=== PATIENT | female | born 1960 | race American Indian/Alaskan Native ===

== ENCOUNTER 2016-07-10 10:05 | Inpatient (IN) | payer OTHER ==
[2016-07-10] MEDS ORDERED: PEPCID IV ONE ×2 (10:19→10:25)
[2016-07-10] MEDS ORDERED: MORPHINE IV PRN (10:25)
[2016-07-10] MEDS ORDERED: BABY ASPIRIN PO ONE (10:28)
--- NOTE | 2016-07-10 10:28 | Emergency Department Report ---
HPI - General Chief Complaint: Allergic Reaction Time Seen by Provider: 07/10/16 10:15 - HPI HPI: The patient is a 56-year-old female who presents for evaluation of allergic reaction. The patient reports continuous constant, severe upper lip swelling since 4 AM, associated with mild pain, tightness in quality, exacerbated with movement of the mid face. The patient also shares that she has experienced pruritic rash to the extremities and body since yesterday evening. The patient denies fever cough, syncope, hemoptysis, dyspnea, neck stiffness, dysphagia, stridor, drooling, difficulty tolerating secretions, dysphonia, joint swelling. ED Past Medical Hx - Past Medical History Hx Hypertension: Yes Hx Arthritis: Yes - Surgical History Additional Surgical History: left knee surgery (2001) - Social History Smoking Status: Light Tobacco Smoker Substance Use Type: None - Medications Home Medications: Home Medications Medication Instructions Recorded Confirmed Last Taken Type Acetaminophen/Codeine [Tylenol #3] 1 tab PO Q6H PRN #20 tab 06/15/13 Unknown Rx Lisinopril [Zestril TAB] 40 mg PO QDAY #45 tablet 06/15/13 Unknown Rx Naproxen Sodium (Nf) [Anaprox DS] 550 mg PO BID PRN #14 tablet 06/15/13 Unknown Rx HYDROcodone/APAP 5-325 [[place] 1 each PO Q6HR PRN #14 tablet 04/20/14 Unknown Rx 5/325] Ibuprofen [Motrin 800 MG tab] 800 mg PO Q8H PRN #20 tablet 04/20/14 Unknown Rx amLODIPine [Norvasc] 10 mg PO DAILY #90 tab 04/20/14 Unknown Rx ED Review of Systems ROS: Stated complaint: ALLERGIC REACTION Other details as noted in HPI Constitutional: denies: fever; reports facial/lip swelling ENT: denies: throat or neck pain Respiratory: denies: cough, shortness of breath Cardiovascular: denies: chest pain Endocrine: denies unexplained weight loss or gain Gastrointestinal: denies: abdominal pain, nausea Genitourinary: denies: dysuria Musculoskeletal: denies: leg swelling Skin: denies: rash Neurological: denies: headache Hematological/Lymphatic: denies: easy bleeding or easy bruising Psych: denies sadness or hopelessness Physical Exam - Physical Exam Vital Signs: Vital Signs 07/10/16 10:13 Pulse Rate 84 Respiratory 18 Rate Blood Pressure 143/89 O2 Sat by Pulse 99 Oximetry Physical Exam: General: well-nourished, well-developed, no acute distress Head: Normocephalic, atraumatic, severe upper lip swelling present, tongue swelling present as well, no uvula or oropharyngeal swelling, no stridor, no pooling of secretions in the posterior oropharynx Eyes: normal sclera ENT: Mucous membranes are pink and moist Neck: trachea midline, neck supple, No neck stiffness, no cervical adenopathy Respiratory: Breath sounds equal bilaterally, no wheezing, rales, or rhonchi Cardio: S1 and S2 present, no murmurs, rubs, gallops, capillary refill is brisk Abdomen: Normoactive bowel sounds, soft abdomen, no rigidity, no guarding or rebound tenderness Chest WALL/Back: No tenderness to palpation of the chest wall, no CVA tenderness with percussion Musc: No pitting edema Skin: No rash Neuro: no facial drooping, normal speech Psych: Normal affect ED Course Vital Signs 07/10/16 10:13 Pulse Rate 84 Respiratory 18 Rate Blood Pressure 143/89 O2 Sat by Pulse 99 Oximetry ED Medical Decision Making - Lab Data Result diagrams: 07/10/16 11:53 07/10/16 11:53 - Medical Decision Making The patient was seen and examined by myself. The patient was given IM epinephrine and IV Benadryl in route via EMS. The patient is placed on a nurse gynecology and continuous pulse ox. On initial evaluation, the patient was found to be in no distress. Evaluation orders were placed. The patient is given IV Solu-Medrol and IV Pepcid. As the patient's angioedema is severe, she will be admitted for close monitoring of her airway. The on-call hospitalist service was contacted. They agreed to admit the patient for further treatment and close monitoring. The ED admit order was placed. The patient was admitted in guarded condition. Critical care attestation.: If time is entered above; I have spent that time in minutes in the direct care of this critically ill patient, excluding procedure time. ED Disposition Clinical Impression: Angioedema Qualifiers: Encounter type: initial encounter Qualified Code(s): T78.3XXA - Angioneurotic edema, initial encounter Anaphylaxis Qualifiers: Encounter type: initial encounter Qualified Code(s): T78.2XXA - Anaphylactic shock, unspecified, initial encounter Disposition: DISCHARGED TO HOME OR SELFCARE Is pt being admited?: Yes Does the pt Need Aspirin: Yes Condition: Fair Time of Disposition: 10:27
--- NOTE | 2016-07-10 10:40 | Admit Criteria Form ---
Admission Criteria Documentation: HEAD AND NECK DISEASE [facility] Clinical Indications for Admission to Inpatient Care ( Place 'X' for any and all applicable criteria): Hospital admission is needed for appropriate care of the patient because of ANY ONE of the following (1)(2): [ ]I. Severe sinusitis as indicated by ANY ONE of the following (6)(13)(21) [ ]a) Suspected VINEGAR MAKER infection [ ]b) Bacteremia [ ]c) Hemodynamic instability [ ]d) Outpatient and observation care antibiotic treatment have failed or are not considered appropriate [ ]e) Surgical drainage needed that cannot be performed on an outpatient basis or observation. setting [ ]f) Suspected orbital involvement [ ]II. Acute glaucoma unresponsive to emergency treatment that requires medication or other treatment beyond the scope of observation care (1) [ ]III. Severe eye infection or inflammation (eg, uveitis) which is unresponsive to emergency treatment and requires medication or other treatment beyond the scope of observation care (1)(2)(3)(4) [ ]IV. Severe epistaxis requiring posterior packing (5)(6) [ ]V. Acute bacterial labyrinthitis(6)(7) [ ]. Viral labyrinthitis with symptoms uncontrollable on an outpatient or observation care basis (6)(7) [ ]VII. Severe necrotizing external otitis unresponsive to outpatient and observation care treatment(6) [ ]VIII. Otitis media requiring treatment beyond the scope of outpatient and observation care, as indicated by presence or persistence of ANY ONE of the following(6)(8)(9): [ ]a) Hemodynamic instability [ ]b) Mastoiditis [ ]c) Suspected VINEGAR MAKER infection [ ]d) Bacteremia [ ]e) Surgical drainage needed that cannot be performed as an outpatient. or in an observation setting. [ ]IX. Epiglottitis or supraglottitis(6)(11)(12)(13)(14) [ ]X. Stridor or laryngospasm (unresponsive to emergency management) (6)(11)( 12)(13)(14) [ ]XI. Acute pharyngitis or tonsillitis and ANY ONE of the following (14)(15)( 16): [ ]a) Hemodynamic instability remaining after emergency or observation level care (as appropriate) [ ]b) Surgical drainage needed that cannot be performed in outpatient or observation setting [ ]c) Mediastinitis [ ]d) Thrombophlebitis of internal jugular vein (Lemierre syndrome) [ ]XII. Sialoadenitis and ANY ONE of the following (17) (18) [ ]a) Hemodynamic instability remaining after emergency or observation level care(as appropriate) [ ]b) Surgical drainage needed that cannot be performed in outpatient or observation setting [ ]XIII. Airway blockage or inability to swallow (6)(12)(19)(20) [ ]XIV.Complicated infection indicated by ANY ONE of the following(6)(13)(21)(22 ): [ ]a) Abscess or swelling causing airway difficulty(12) [ ]b) Bacteremia [ ]c) Hemodynamic instability [ ]d) Suspected VINEGAR MAKER infection [ ]e) Outpatient and observation care antibiotic treatment have failed or are not considered appropriate [ ]f) Surgical drainage needed that cannot be performed on an outpatient basis or observation setting [ ]g) Other management need that cannot be performed in outpatient or observation setting: [ ]XV. Severe trauma requiring inpatient medical treatment of eye, head, pharynx, or airway (1)(23)([phone]) [ ]XVI. Ischemic optic neuropathy(11) [ X]XVII.Head or Neck Disease condition and ANY ONE of the following: [X ]a) Symptom or finding for which emergency and observation care have failed or are not considered appropriate (Also use General Criteria: Observation Care as appropriate) [ ]b) Presence of ANY ONE of the following: [ ]i) A General Admission Criteria [ ]ii) A Pediatric General Admission Criteria The [facility] content created by [facility] has been revised. The portions of the content which have been revised are identified through the use of italic text or in bold, and [facility] has neither reviewed nor approved the modified material. All other unmodified content is copyright [facility]. Please see references footnoted in the original [facility] edition 2016 Admission Criteria Met: Yes
--- NOTE | 2016-07-10 11:13 | History and Physical Report ---
Medications and Allergies Allergies Allergy/AdvReac Type Severity Reaction Status Date / Time No Known Allergies Allergy Verified 04/20/14 11:51 Home Medications Medication Instructions Recorded Confirmed Last Taken Type Acetaminophen/Codeine [Tylenol #3] 1 tab PO Q6H PRN #20 tab 06/15/13 Unknown Rx Lisinopril [Zestril TAB] 40 mg PO QDAY #45 tablet 06/15/13 Unknown Rx Naproxen Sodium (Nf) [Anaprox DS] 550 mg PO BID PRN #14 tablet 06/15/13 Unknown Rx HYDROcodone/APAP 5-325 [[place] 1 each PO Q6HR PRN #14 tablet 04/20/14 Unknown Rx 5/325] Ibuprofen [Motrin 800 MG tab] 800 mg PO Q8H PRN #20 tablet 04/20/14 Unknown Rx amLODIPine [Norvasc] 10 mg PO DAILY #90 tab 04/20/14 Unknown Rx Active Meds: Active Medications Morphine Sulfate (Morphine) 4 mg IV Q3H PRN PRN Reason: Pain , Severe (7-10) Last Admin: 07/10/16 10:37 Dose: 4 mg Exam - Constitutional Vitals: Temp Pulse Resp BP Pulse Ox 74 18 158/77 99 07/10/16 10:37 07/10/16 10:41 07/10/16 10:37 07/10/16 10:41
[2016-07-10 11:57] LABS: Basophils % (Auto) 0.1 % (0.0-1.8); Eosinophils % (Auto) 0.9 % (0.0-4.3); Hemoglobin 12.1 gm/dl (10.1-14.3); Mean Corpuscular HGB Conc 33 % (30-34); Mean Corpuscular Hemoglobin 31 pg (28-32); Mean Corpuscular Volume 93 fl (79-97); Platelet Count 612 K/mm3 (140-440); Red Blood Count 3.96 M/mm3 (3.65-5.03); Red Cell Distribution Width 13.6 % (13.2-15.2); White Blood Count 11.4 K/mm3 (4.5-11.0)
[2016-07-10] MEDS ORDERED: TYLENOL PO PRN (12:08)
[2016-07-10] MEDS ORDERED: DULCOLAX PR PRN (12:08)
[2016-07-10] MEDS ORDERED: ZOFRAN IV PRN (12:08)
[2016-07-10 12:14] LABS: Alanine Aminotransferase 8 units/L (7-56); Albumin/Globulin Ratio 1.4 %; Alkaline Phosphatase 125 units/L (35-129); Bilirubin,Total 0.2 mg/dL (0.1-1.2); Blood Urea Nitrogen 7 mg/dL (7-17); Carbon Dioxide 27 mmol/L (22-30); Chloride 103.9 mmol/L (98-107); Glucose 94 mg/dL (65-100); Magnesium 1.9 mg/dL (1.7-2.3); Potassium 4.5 mmol/L (3.6-5.0); Sodium 144 mmol/L (137-145); Total Protein 6.9 g/dL (6.3-8.2)
[2016-07-10 12:15] LABS: Anion Gap 18 mmol/L
[2016-07-10] MEDS ORDERED: NORCO 5/325 PO PRN (12:16)
[2016-07-10] MEDS ORDERED: BENADRYL PO ONE (14:20)
[2016-07-10] MEDS: BENADRYL IV SCH ×2 (14:46→19:22)
[2016-07-10] MEDS: NORVASC PO SCH (14:46)
[2016-07-10] MEDS: MORPHINE IV PRN ×2 (14:47→19:21)
[2016-07-10] MEDS: HEPARIN SUB-Q SCH ×3 (14:56→22:48)
[2016-07-10] MEDS: PEPCID IV SCH (20:54)
[2016-07-11] MEDS: BENADRYL IV SCH ×3 (00:10→13:24)
[2016-07-11] MEDS: PEPCID IV SCH ×2 (05:48→10:06)
[2016-07-11] MEDS: MORPHINE IV PRN ×2 (06:10→10:05)
[2016-07-11] MEDS: HEPARIN SUB-Q SCH ×2 (06:17→13:22)
[2016-07-11] MEDS: NORVASC PO SCH (10:06)
--- NOTE | 2016-07-11 11:24 | Discharge Summary ---
Providers - Providers Date of Admission: 07/10/16 12:09 Date of discharge: 07/11/16 Attending physician: DANIELA ZAZUETA Primary care physician: SUSY ANDERSON MD Hospitalization Condition: Fair Disposition: DISCHARGED TO HOME OR SELFCARE - Discharge Diagnoses (1) Angioedema Status: Acute Qualifiers: Encounter type: initial encounter Qualified Code(s): T78.3XXA - Angioneurotic edema, initial encounter Core Measure Documentation - Palliative Care Palliative Care/ Comfort Measures: Not Applicable - Core Measures Any of the following diagnoses?: none Exam - Constitutional Vitals: Temp Pulse Resp BP Pulse Ox 98.3 F 65 18 149/69 97 07/11/16 09:03 07/11/16 10:06 07/11/16 09:03 07/11/16 10:06 07/11/16 09:03 Plan Activity: no restrictions Diet: low fat, low cholesterol, low salt Additional Instructions: 1.Follow up with PCP in 3-5 days. Follow up with: PRIMARY CARE, [Primary Care Provider] - 7 Days Prescriptions: Diphenhydramine HCl [Benadryl Allergy TAB] 25 mg PO TID #10 tablet Famotidine [Pepcid] 20 mg PO BID #14 tablet Prednisone [predniSONE 5 mg (6-Day Pack, 21 Tabs)] 5 mg PO .TAPER #1 tab.ds.pk
[2016-07-11 13:36] VITALS: BP 154/86
[2016-07-11] MEDS ORDERED: PEPCID PO SCH (22:00)
== END 2016-07-11 15:40 | disposition home or self-care (01) | DRG 916 ==
LOC: ED 10:05 → 4A 12:09
PROVIDERS: ADMIT Internal Medicine; ATTEND Internal Medicine
DX: T78.3XXA Angioneurotic edema, initial encounter (principal); T78.2XXA Anaphylactic shock, unspecified, initial encounter; I10 Essential (primary) hypertension; M19.90 Unspecified osteoarthritis, unspecified site; F17.200 Nicotine dependence, unspecified, uncomplicated; Z98.890 Other specified postprocedural states; Z79.899 Other long term (current) drug therapy
CPT/HCPCS: 36415; 80053; 83735; 85025; 96374; 96375; 99406; J1200; J1644; J2270; J2930

== ENCOUNTER 2016-07-19 09:17 | Outpatient (CLI) | payer OTHER ==
[2016-07-19] MEDS ORDERED: XYLOCAINE TOPICAL 2% TP ONE ×2 (10:33→15:37)
== END 2016-07-19 09:18 | disposition home or self-care (01) ==
LOC: WOUND 09:17
PROVIDERS: ATTEND Internal Medicine
DX: T81.89XD Other complications of procedures, not elsewhere classified, subsequent encounter (principal); L97.821 Non-pressure chronic ulcer of other part of left lower leg limited to breakdown of skin; I10 Essential (primary) hypertension; M19.90 Unspecified osteoarthritis, unspecified site; M23.52 Chronic instability of knee, left knee; F17.210 Nicotine dependence, cigarettes, uncomplicated; Y83.8 Other surgical procedures as the cause of abnormal reaction of the patient, or of later complication, without mention of misadventure at the time of the procedure
CPT/HCPCS: 11042; 87075; 87116; G0463

== ENCOUNTER 2016-07-26 09:39 | Outpatient (CLI) | payer OTHER ==
[2016-07-26] MEDS ORDERED: XYLOCAINE TOPICAL 2% ONE (10:19)
[2016-07-26] MEDS ORDERED: XYLOCAINE TOPICAL 2% TP ONE (11:16)
== END 2016-07-26 09:40 | disposition home or self-care (01) ==
LOC: WOUND 09:39
PROVIDERS: ATTEND Podiatrist
DX: T81.89XD Other complications of procedures, not elsewhere classified, subsequent encounter (principal); L97.922 Non-pressure chronic ulcer of unspecified part of left lower leg with fat layer exposed; I10 Essential (primary) hypertension; M19.90 Unspecified osteoarthritis, unspecified site; F17.210 Nicotine dependence, cigarettes, uncomplicated; Y83.8 Other surgical procedures as the cause of abnormal reaction of the patient, or of later complication, without mention of misadventure at the time of the procedure

== ENCOUNTER 2016-08-01 07:45 | Outpatient (CLI) | payer OTHER ==
[2016-08-01] MEDS ORDERED: XYLOCAINE TOPICAL 2% ONE (08:04)
[2016-08-01] MEDS ORDERED: XYLOCAINE TOPICAL 2% TP ONE (14:37)
== END 2016-08-01 07:46 | disposition home or self-care (01) ==
LOC: WOUND 07:45
PROVIDERS: ATTEND Orthopaedic Surgery
DX: T81.89XD Other complications of procedures, not elsewhere classified, subsequent encounter (principal); L97.922 Non-pressure chronic ulcer of unspecified part of left lower leg with fat layer exposed; I10 Essential (primary) hypertension; M19.90 Unspecified osteoarthritis, unspecified site; F17.210 Nicotine dependence, cigarettes, uncomplicated; Y83.8 Other surgical procedures as the cause of abnormal reaction of the patient, or of later complication, without mention of misadventure at the time of the procedure
CPT/HCPCS: 87075; 87116

== ENCOUNTER 2016-08-09 07:54 | Outpatient (CLI) | payer OTHER ==
[2016-08-09] MEDS ORDERED: XYLOCAINE TOPICAL 2% ONE (08:09)
[2016-08-09] MEDS ORDERED: XYLOCAINE TOPICAL 2% TP ONE (11:18)
== END 2016-08-09 07:55 | disposition home or self-care (01) ==
LOC: WOUND 07:54
PROVIDERS: ATTEND Podiatrist
DX: T81.89XD Other complications of procedures, not elsewhere classified, subsequent encounter (principal); L97.822 Non-pressure chronic ulcer of other part of left lower leg with fat layer exposed; M23.52 Chronic instability of knee, left knee; F17.210 Nicotine dependence, cigarettes, uncomplicated; I10 Essential (primary) hypertension; M17.12 Unilateral primary osteoarthritis, left knee; M19.90 Unspecified osteoarthritis, unspecified site; F32.9 Major depressive disorder, single episode, unspecified; R26.9 Unspecified abnormalities of gait and mobility; Y83.9 Surgical procedure, unspecified as the cause of abnormal reaction of the patient, or of later complication, without mention of misadventure at the time of the procedure

== ENCOUNTER 2016-08-16 08:03 | Outpatient (CLI) | payer OTHER ==
[2016-08-16] MEDS ORDERED: XYLOCAINE TOPICAL 4% TP ONE (08:34)
== END 2016-08-16 08:04 | disposition home or self-care (01) ==
LOC: WOUND 08:03
PROVIDERS: ATTEND Podiatrist
DX: T81.89XD Other complications of procedures, not elsewhere classified, subsequent encounter (principal); L97.922 Non-pressure chronic ulcer of unspecified part of left lower leg with fat layer exposed; M19.90 Unspecified osteoarthritis, unspecified site; I10 Essential (primary) hypertension; F32.9 Major depressive disorder, single episode, unspecified; F17.210 Nicotine dependence, cigarettes, uncomplicated; Y83.8 Other surgical procedures as the cause of abnormal reaction of the patient, or of later complication, without mention of misadventure at the time of the procedure

== ENCOUNTER 2016-08-23 08:06 | Outpatient (CLI) | payer OTHER | END 2016-08-23 08:07 | disposition home or self-care (01) | LOC: WOUND 08:06 | PROVIDERS: ATTEND Podiatrist | DX: T81.89XD Other complications of procedures, not elsewhere classified, subsequent encounter (principal); L97.822 Non-pressure chronic ulcer of other part of left lower leg with fat layer exposed; M19.90 Unspecified osteoarthritis, unspecified site; M23.52 Chronic instability of knee, left knee; F32.9 Major depressive disorder, single episode, unspecified; M17.9 Osteoarthritis of knee, unspecified; I10 Essential (primary) hypertension; F17.210 Nicotine dependence, cigarettes, uncomplicated; Y83.8 Other surgical procedures as the cause of abnormal reaction of the patient, or of later complication, without mention of misadventure at the time of the procedure ==

== ENCOUNTER 2016-08-30 07:50 | Outpatient (CLI) | payer OTHER ==
[2016-08-30] MEDS ORDERED: XYLOCAINE TOPICAL 2% TP ONE (08:19)
== END 2016-08-30 07:51 | disposition home or self-care (01) ==
LOC: WOUND 07:50
PROVIDERS: ATTEND Podiatrist
DX: T81.89XD Other complications of procedures, not elsewhere classified, subsequent encounter (principal); L97.922 Non-pressure chronic ulcer of unspecified part of left lower leg with fat layer exposed; M23.52 Chronic instability of knee, left knee; I10 Essential (primary) hypertension; R26.9 Unspecified abnormalities of gait and mobility; F32.9 Major depressive disorder, single episode, unspecified; M17.9 Osteoarthritis of knee, unspecified; F17.210 Nicotine dependence, cigarettes, uncomplicated; Y83.8 Other surgical procedures as the cause of abnormal reaction of the patient, or of later complication, without mention of misadventure at the time of the procedure

== ENCOUNTER 2016-09-17 07:38 | Outpatient (CLI) | payer OTHER ==
--- NOTE | 2016-09-18 11:38 | Nuclear Medicine Report ---
NUCLEAR MEDICINE LEUKOCYTE SCAN HISTORY: Left knee pain and swelling, evaluate for infected left knee prosthesis. FINDINGS: There are no radiographic exams for comparison. 3 hour and 24-hour imaging was performed after injection of 25 mCi of technetium 99m Ceretec. There is normal uptake of the radiotracer in the liver, spleen and bone marrow. 3 and 24-hour images demonstrate increased uptake of the radiotracer in the distal left femur. There may be minimal increased uptake in the proximal tibia. IMPRESSION: Increased radiotracer accumulation surrounding the left knee prosthesis, in particular the femoral component, concerning for infection/osteomyelitis.
== END 2016-09-17 07:39 | disposition home or self-care (01) ==
LOC: NM 07:38
PROVIDERS: ATTEND Orthopaedic Surgery
DX: T84.54XD Infection and inflammatory reaction due to internal left knee prosthesis, subsequent encounter (principal); M17.12 Unilateral primary osteoarthritis, left knee
CPT/HCPCS: 78806; A9521; A9547

== ENCOUNTER 2016-09-17 09:32 | Outpatient (CLI) | payer OTHER ==
[2016-09-17] MEDS ORDERED: XYLOCAINE TOPICAL 2% TP ONE ×2 (09:52→13:51)
== END 2016-09-17 09:33 | disposition home or self-care (01) ==
LOC: WOUND 09:32
PROVIDERS: ATTEND Podiatrist
DX: T81.89XD Other complications of procedures, not elsewhere classified, subsequent encounter (principal); T84.54XD Infection and inflammatory reaction due to internal left knee prosthesis, subsequent encounter; L97.922 Non-pressure chronic ulcer of unspecified part of left lower leg with fat layer exposed; F17.210 Nicotine dependence, cigarettes, uncomplicated; M23.52 Chronic instability of knee, left knee; M17.9 Osteoarthritis of knee, unspecified; I10 Essential (primary) hypertension; R26.9 Unspecified abnormalities of gait and mobility; F32.9 Major depressive disorder, single episode, unspecified; Y83.8 Other surgical procedures as the cause of abnormal reaction of the patient, or of later complication, without mention of misadventure at the time of the procedure

== ENCOUNTER 2016-10-26 16:50 | Emergency (ER) | payer OTHER ==
[2016-10-26] MEDS ORDERED: HEPARIN 10,000 UNITS/10 ML IV ONE (22:57)
[2016-10-26] MEDS ORDERED: FLUSH HEPARIN IV ONE ×2 (22:57→23:02)
[2016-10-26] MEDS ORDERED: POLYCILLIN/NS 2 GM/100 ML 2 GM/100 ML BAG IV ONE (23:00)
[2016-10-26] MEDS ORDERED: POLYCILLIN 2,000 MG in NACL 0.9% 50 ML IV ONE (23:08)
--- NOTE | 2016-10-26 23:09 | Emergency Department Report ---
ED General Adult HPI - General Chief complaint: Laceration/Recheck/Suture Stated complaint: PICK LINE PROBLEM Time Seen by Provider: 10/26/16 22:55 Source: patient, RN notes reviewed, old records reviewed Mode of arrival: Ambulatory Limitations: No Limitations - History of Present Illness Initial comments: This is a 56-year-old female, previously unknown to me. Her orthopedic doctor is Dr. Fleming at [facility] Her infectious disease doctor is Dr. Shanks, also at [facility]; The patient is currently being treated for osteomyelitis in the left lower extremity. She is getting ampicillin 2 g every 24 hours. She had a PICC line in place in the right upper extremity on 09/28/2016, also at [facility]. She presents to the ER today complaining of leaking from the PICC line in the right upper extremity. No fevers or chills. No chest pain or shortness of breath. Reports that pain and range of motion are much improved in the left lower extremity. No other issues, no other complaints. -: Gradual Location: left, upper extremity Improves with: none Worsens with: none Associated Symptoms: denies other symptoms - Related Data Home Medications Medication Instructions Recorded Confirmed Last Taken Aspirin 325 mg PO QDAY 07/10/16 07/10/16 10/26/16 Cephalexin 500 mg PO TID 07/10/16 07/10/16 10/26/16 Sertraline HCl 50 mg PO QDAY 07/10/16 07/10/16 10/26/16 Sulfamethoxazole/Trimethoprim 800 mg PO Q12HR MDD 800/160 mg 07/10/16 07/10/16 10/26/16 Vitamin D3 2,000 unit PO QDAY 07/10/16 07/10/16 10/26/16 oxyCODONE /ACETAMINOPHEN 7.5 mg PO PRN PRN 07/10/16 07/10/16 10/26/16 Previous Rx's Medication Instructions Recorded Last Taken Type amLODIPine [Norvasc] 10 mg PO DAILY #90 tab 04/20/14 10/26/16 Rx Diphenhydramine HCl [Benadryl 25 mg PO TID #10 tablet 07/11/16 10/26/16 Rx Allergy TAB] Famotidine [Pepcid] 20 mg PO BID #14 tablet 07/11/16 10/26/16 Rx Prednisone [predniSONE 5 mg (6-Day 5 mg PO .TAPER #1 tab.ds.pk 07/11/16 Rx Pack, 21 Tabs)] Allergies Allergy/AdvReac Type Severity Reaction Status Date / Time lisinopril Allergy Angioedema Verified 08/06/16 19:52 ED Review of Systems ROS: Stated complaint: PICK LINE PROBLEM Other details as noted in HPI Constitutional: denies: fever Eyes: denies: vision change ENT: denies: epistaxis Respiratory: denies: cough Cardiovascular: denies: chest pain Gastrointestinal: vomiting. denies: abdominal pain Musculoskeletal: as per HPI. denies: joint swelling Skin: denies: lesions Neurological: denies: weakness ED Past Medical Hx - Past Medical History Hx Hypertension: Yes Hx Congestive Heart Failure: No Hx Diabetes: No Hx Arthritis: Yes Hx Asthma: No Hx COPD: No - Surgical History Additional Surgical History: left knee surgery (2001) - Social History Smoking Status: Current Some Day Smoker Substance Use Type: Alcohol - Medications Home Medications: Home Medications Medication Instructions Recorded Confirmed Last Taken Type amLODIPine [Norvasc] 10 mg PO DAILY #90 tab 04/20/14 07/10/16 10/26/16 Rx Aspirin 325 mg PO QDAY 07/10/16 07/10/16 10/26/16 History Cephalexin 500 mg PO TID 07/10/16 07/10/16 10/26/16 History Sertraline HCl 50 mg PO QDAY 07/10/16 07/10/16 10/26/16 History Sulfamethoxazole/Trimethoprim 800 mg PO Q12HR MDD 800/160 mg 07/10/16 07/10/16 10/26/16 History Vitamin D3 2,000 unit PO QDAY 07/10/16 07/10/16 10/26/16 History oxyCODONE /ACETAMINOPHEN 7.5 mg PO PRN PRN 07/10/16 07/10/16 10/26/16 History Diphenhydramine HCl [Benadryl 25 mg PO TID #10 tablet 07/11/16 10/26/16 Rx Allergy TAB] Famotidine [Pepcid] 20 mg PO BID #14 tablet 07/11/16 10/26/16 Rx Prednisone [predniSONE 5 mg (6-Day 5 mg PO .TAPER #1 tab.ds.pk 07/11/16 Rx Pack, 21 Tabs)] ED Physical Exam - General Limitations: No Limitations General appearance: alert, in no apparent distress - Head Head exam: Present: atraumatic, normocephalic - Eye Eye exam: Present: normal appearance, EOMI. Absent: nystagmus - ENT ENT exam: Present: normal exam, normal orophraynx, mucous membranes moist, normal external ear exam - Neck Neck exam: Present: normal inspection, full ROM. Absent: tenderness, meningismus - Respiratory Respiratory exam: Present: normal lung sounds bilaterally. Absent: respiratory distress, wheezes, rales, rhonchi, stridor, chest wall tenderness, accessory muscle use, decreased breath sounds, prolonged expiratory - Cardiovascular Cardiovascular Exam: Present: regular rate, normal rhythm, normal heart sounds. Absent: bradycardia, tachycardia, irregular rhythm, systolic murmur, diastolic murmur, rubs, gallop - GI/Abdominal GI/Abdominal exam: Present: soft, normal bowel sounds. Absent: distended, tenderness, guarding, rebound, rigid, pulsatile mass - Extremities Exam Extremities exam: Present: normal inspection, full ROM, normal capillary refill , other (there is a PICC line noted in the right upper extremity. There is no redness, pus, streaking or crepitus. There is no tenderness over the biceps compartment. 2+ pulses are noted in 4 extremities. The left lower extremity, there is no redness, pus, crepitus. Compartments are soft.). Absent: tenderness, pedal edema, joint swelling, calf tenderness - Back Exam Back exam: Present: normal inspection, full ROM. Absent: tenderness, CVA tenderness (R), CVA tenderness (L), muscle spasm, paraspinal tenderness, vertebral tenderness - Neurological Exam Neurological exam: Present: alert, oriented X3, normal gait, other (Extraocular movements intact. Tongue midline. No facial droop. Facial sensation intact to light touch in the V1, V2, V3 distribution bilaterally. 5 and 5 strength in 4 extremities.. Sensation is intact to light touch in 4 extremities.). Absent : motor sensory deficit - Psychiatric Psychiatric exam: Present: normal affect, normal mood - Skin Skin exam: Present: warm, dry, intact, normal color. Absent: rash ED Course Vital Signs 10/26/16 10/27/16 17:08 00:27 Temperature 98 F Pulse Rate 90 76 Respiratory 16 17 Rate Blood Pressure 151/90 Blood Pressure 175/99 [Left] O2 Sat by Pulse 100 100 Oximetry - Reevaluation(s) Reevaluation #1: 10/26/16 23:13 Differential diagnosis: PICC line malfunction Assessment and plan: 56-year-old female with complaint of leaking from PICC line. There is no clinical indication of DVT or infection around the PICC line. I am able to flush the PICC line with sterile saline and heparin flush without difficulty. Given this, I think it is acceptable to use the PICC line on a temporary basis, but the patient is instructed to closely follow up with outpatient vascular surgery for further management. The patient is given 2 g of ampicillin which should hold her over the next 24 hours as she reports that she gets this once every 24 hours. She is instructed to follow up with her infectious disease physician or vascular surgery for replacement of a PICC line. She is nontoxic-appearing, tolerating liquid feeds , and is very well-appearing. She has been on antibiotics for 4 weeks. I don' t believe she requires admission to the hospital at this time. 10/26/16 23:17 ED Medical Decision Making - Lab Data Vital Signs 10/26/16 17:08 Temperature 98 F Pulse Rate 90 Respiratory 16 Rate Blood Pressure 151/90 O2 Sat by Pulse 100 Oximetry - Radiology Data Radiology results: image reviewed interpreted by me: X-ray of the chest is negative for acute disease. The PICC line is not noted in the roseanne thorax. Critical care attestation.: If time is entered above; I have spent that time in minutes in the direct care of this critically ill patient, excluding procedure time. ED Disposition Clinical Impression: Status post PICC central line placement Disposition: DISCHARGED TO HOME OR SELFCARE Is pt being admited?: No Does the pt Need Aspirin: No Condition: Good Instructions: Peripherally Inserted Central Catheters and Midline Catheters (ED ) Additional Instructions: current outpatient medications. Follow-up with your vascular surgeon who placed the PICC line, or with Dr. Webb (or any one of his colleagues), who is a local vascular surgeon to have the PICC line replaced. Alternatively, you may follow up at [facility] to have the PICC line reassessed. At this point in time, it does not appear that the PICC line is infected, and it does not appear to be obstructed. I would not recommend using the PICC line at this time, and it should be reevaluated by the vascular surgeon. I have given you antibiotics which should hold you over for the next 24 hours. Therefore I recommend that you follow up with either a vascular surgeon or shanelle castro within the next 24 hours. Blood pressure is noted to be elevated. This should be followed up by her primary care doctor within the next 7-10 days. It is very important to closely follow-up for elevated blood pressure. Long-term complications for hypertension /elevated blood pressure includes stroke, heart attack, disability, , paralysis, permanent loss of quality of life. Please return to the ER right away with fevers and chills, chest pain or shortness of breath, intractable nausea or vomiting, inability to tolerate liquid feeds, redness, pus, streaking from the PICC line site, or inability to flush or use the PICC line. Referrals: PRIMARY CAREMD [Primary Care Provider] - 3-5 Days MAURICE WEBB MD [Staff Physician] - 3-5 Days
[2016-10-27 00:28] VITALS: BP 175/99
--- NOTE | 2016-10-27 09:56 | XRay Report ---
AP CHEST: HISTORY: chest pain AP view of the chest demonstrates a normal mediastinal and cardiac contour with clear lungs and normal bony and soft tissue structures. IMPRESSION: Unremarkable AP chest.
== END 2016-10-27 00:39 | disposition home or self-care (01) ==
LOC: ED 16:50
DX: T82.534A Leakage of infusion catheter, initial encounter (principal); I10 Essential (primary) hypertension; M19.90 Unspecified osteoarthritis, unspecified site; Z88.8 Allergy status to other drugs, medicaments and biological substances; Z72.0 Tobacco use; Z79.82 Long term (current) use of aspirin
CPT/HCPCS: 71010; 96365; 96375; 99283; J0290; J1642

== ENCOUNTER 2019-04-21 10:16 | Outpatient (CLI) | payer OTHER ==
--- NOTE | 2019-04-22 14:03 | Mammography Report ---
DIGITAL SCREENING MAMMOGRAM WITH CAD, 04/21/2019 INDICATION: Routine screening mammography. TECHNIQUE: Digital bilateral 2D mammography was obtained in the craniocaudal and mediolateral obliq ue projections. This examination was interpreted with the benefit of Computer-Aided Detection analysi s. COMPARISON: 10/05/2014 FINDINGS: Breast Density: There are scattered areas of fibroglandular density. There is no evidence of dominant mass, suspicious calcifications or architectural distortion in eithe r breast. IMPRESSION: No mammographic evidence of malignancy. Follow up recommendation: Routine yearly BI-RADS Category 1: Negative. A "normal" or negative report should not discourage follow up or biopsy of a clinically significant f inding. A written summary of these findings will be mailed to the patient. The patient will be entered into a mammography reporting system which will generate a reminder letter for the patient's next appointmen t at the appropriate interval. The [employer] recommends yearly mammograms starting at age 40 and continuing as l salty as a woman is in good health. Breast MRI is recommended for women with an approximate 20-25% or greater lifetime risk of breast cancer, including women with a strong family history of breast or ova haris cancer or who have been treated for Hodgkin's disease. Signer Name: Leno Murguia MD Signed: 04/22/2019 1:59 PM Workstation Name: [id number]
== END 2019-04-21 10:17 | disposition home or self-care (01) ==
LOC: MAMMO 10:16
PROVIDERS: ATTEND Hospitalist
DX: Z12.31 Encounter for screening mammogram for malignant neoplasm of breast (principal)
CPT/HCPCS: 77067

== ENCOUNTER 2019-08-06 06:12 | Day surgery (SDC) | payer OTHER ==
[2019-08-06] MEDS ORDERED: SODIUM CHLORIDE 0.9% 1000 ML 1,000 ML ONE (07:20)
[2019-08-06 07:23] LABS: Basophils # (Auto) 0.1 K/mm3 (0.0-0.1); Basophils % (Auto) 1.1 % (0.0-1.8); Eosinophils # (Auto) 0.2 K/mm3 (0.0-0.4); Hematocrit 40.5 % (30.3-42.9); Hemoglobin 13.7 gm/dl (10.1-14.3); Lymphocytes # (Auto) 1.9 K/mm3 (1.2-5.4); Lymphocytes % (Auto) 36.2 % (13.4-35.0); Mean Corpuscular HGB Conc 34 % (30-34); Mean Corpuscular Volume 97 fl (79-97); Monocytes # (Auto) 0.4 K/mm3 (0.0-0.8); Monocytes % (Auto) 7.1 % (0.0-7.3); Platelet Count 297 K/mm3 (140-440); Red Blood Count 4.15 M/mm3 (3.65-5.03); Red Cell Distribution Width 13.8 % (13.2-15.2)
--- NOTE | 2019-08-06 07:33 | Anesthesia Consultation ---
Anesthesia Consult and Med Hx Date of service: 08/06/19 - Airway Anesthetic Teeth Evaluation: Poor (multiple missing teeth, mostly on the top) ROM Head & Neck: Adequate Mental/Hyoid Distance: Adequate Mallampati Class: Class II Intubation Access Assessment: Probably Good - Pre-Operative Health Status ASA Pre-Surgery Classification: ASA3 Proposed Anesthetic Plan: MAC - Pulmonary Hx Smoking: Yes (former smoker) Hx Asthma: No COPD: No Hx Pneumonia: No - Cardiovascular System Hx Hypertension: Yes Hx Cardia Arrhythmia: Yes (newly diagnosed paraxismal a-fib with RVR) - Central Nervous System Hx Back Pain: Yes (s/p left total knee replacement) Hx Psychiatric Problems: Yes (depression) - Gastrointestinal Hx Gastroesophageal Reflux Disease: Yes - Endocrine Hx End Stage Renal Disease: No - Hematic Hx Anemia: No Hx Sickle Cell Disease: No - Other Systems Hx Obesity: Yes (BMI 32.3)
--- NOTE | 2019-08-06 07:33 | Anesthesia Day of Surgery ---
Anesthesia Day of Surgery - Day of Surgery Patient Examined: Yes Patient H&P Reviewed: Yes Patient is NPO: Yes
[2019-08-06 07:41] LABS: BUN/Creatinine Ratio 9; Blood Urea Nitrogen 8 mg/dL (7-17); Calcium 9.8 mg/dL (8.4-10.2); Hemolysis Index 25
[2019-08-06] MEDS ORDERED: SODIUM CHLORIDE 0.9% 1000 ML 1,000 ML IV SCH (07:45)
[2019-08-06 07:59] LABS: INR 1.11 (0.87-1.13)
[2019-08-06] MEDS ORDERED: LIDOCAINE MPF (2%) 20 MG/1 ML VIAL 5 ML ONE (07:59)
[2019-08-06] MEDS ORDERED: propofoL 200 MG/20 ML VIAL IV ONE ×2 (07:59→09:44)
[2019-08-06 08:00] LABS: Partial Thromboplastin Time 34.8 Sec. (24.2-36.6)
[2019-08-06] MEDS ORDERED: BENZOCAINE 20% TOP SPRAY 0.5 ML UNIT DOSE MM NR (08:00)
--- NOTE | 2019-08-06 09:49 | Short Stay Summary ---
Short Stay Documentation Date of service: 08/06/19 - History H&P: obtained from office - Allergies and Medications Current Medications: Allergies No Known Allergies Allergy (Unverified 08/06/19 06:49) Home Medications Medication Instructions Recorded Confirmed Last Taken Type Sertraline [Zoloft] 50 mg PO QDAY 04/30/19 08/06/19 08/05/19 History Vitamin D3 2,000 UNIT CAP 1 tab PO QDAY 04/30/19 08/06/19 08/04/19 History Apixaban [Eliquis] 5 mg PO Q12HR #90 tablet 05/08/19 08/06/19 08/05/19 Rx Pantoprazole [Protonix TAB] 40 mg PO QDAY #30 tablet 05/08/19 08/06/19 08/05/19 Rx dilTIAZem CD [Cardizem CD] 240 mg PO QDAY #30 cap 05/08/19 08/06/19 08/05/19 Rx Active Medications Benzocaine (Hurricaine One 20% Topical [place]) 3 spray MM PREOP NR Stop: 08/07/19 07:59 Last Admin: 08/06/19 08:53 Dose: 3 spray Documented by: Sodium Chloride (Nacl 0.9% 1000 Ml) 1,000 mls @ 42 mls/hr IV DIRECT SHY Last Admin: 08/06/19 08:45 Dose: 42 mls/hr Documented by: - Physical exam General appearance: no acute distress Lungs: Clear to auscultation Heart: Other (Tachy, irreg) Gastrointestinal: normal Extremities: No edema - Brief post op/procedure progress note Date of procedure: 08/06/19 Pre-op diagnosis: Afib with RVR Post-op diagnosis: same Procedure: ANTONELLA guided CV Anesthesia: MAC Findings: See report Surgeon: JONNATHAN ODELL Estimated blood loss: none Pathology: none Condition: stable - Hospital course Hospital course: Uneventful - Disposition Condition at discharge: Good Disposition: DC-01 TO HOME OR SELFCARE Short Stay Discharge Plan Activity: advance as tolerated Weight Bearing Status: Partial Weight Bearing Diet: low fat, low cholesterol, low salt Follow up with: DAWIT ZHENG MD [Primary Care Provider] - 7 Days
--- NOTE | 2019-08-06 09:50 | Post Anesthesia Evaluation ---
- Post Anesthesia Evaluation Patient Participated: Yes Airway Patent: Yes Stable Respiratory Function: Yes Temp > 96.8F: Yes Pain Manageable: Yes Adequeate Hydration: Yes Anesthesia Complications: No
--- NOTE | 2019-08-06 10:37 | Procedure Note ---
CARDIOVERSION INDICATION: Atrial fibrillation with rapid ventricular rate. ORDERING PHYSICIAN: Lakhwinder Varela MD DESCRIPTION OF PROCEDURE: After obtaining the consent and after documenting the absence of left atrial appendage clot, a 200 joule synchronized shock was administered with successful cardioversion from atrial fibrillation into sinus rhythm. No complications occurred during the procedure. RECOMMENDATIONS: The patient to continue taking anticoagulation indefinitely. JOB# [id number] BEAU/MARIJA
[2019-08-06 12:29] VITALS: BP 158/89
== END 2019-08-06 11:33 | disposition home or self-care (01) ==
LOC: CATHLABREC 06:12 → EDSTATUS 08:00 → CATHLABREC 11:33
PROVIDERS: ATTEND Internal Medicine Cardiovascular Disease
DX: I48.0 Paroxysmal atrial fibrillation (principal)
CPT/HCPCS: 36415; 80048; 85025; 85610; 85730; 93005; 93010; 93312; 93320; 93325; J2704; J7030

== ENCOUNTER 2020-10-20 11:37 | Outpatient (CLI) | payer OTHER ==
--- NOTE | 2020-10-20 13:06 | XRay Report ---
CHEST 2 VIEWS INDICATION / CLINICAL INFORMATION: PULMONARY HYPERTENSION,THROMBOCYTOENIA. COMPARISON: 05/01/2019 FINDINGS: SUPPORT DEVICES: None. HEART / MEDIASTINUM: No significant abnormality. LUNGS / PLEURA: No significant pulmonary or pleural abnormality. No pneumothorax. ADDITIONAL FINDINGS: No significant additional findings. IMPRESSION: No significant abnormality or interval change from 05/01/2019 Signer Name: Pj Vazquez MD FACShirley Signed: 10/20/2020 1:01 PM Workstation Name: [id number]
--- NOTE | 2020-10-20 13:24 | Nuclear Medicine Report ---
Nuclear medicine pulmonary perfusion scan INDICATION: Acute onset dyspnea with chest pain. History of pulmonary hypertension. Thrombocytopenia TECHNIQUE: A total of 5.2 mCi of technetium 99 MAA was injected IV per protocol. Planar images were o btained. No ventilatory images were obtained. COMPARISON: Chest radiograph performed earlier today FINDINGS: No perfusion defect identified. The heart is borderline enlarged. IMPRESSION: No significant perfusion abnormalities identified within either lung. Signer Name: Tyrell Lovelace MD Signed: 10/20/2020 1:20 PM Workstation Name: [id number]
== END 2020-10-20 11:38 | disposition home or self-care (01) ==
LOC: NM 11:37
PROVIDERS: ATTEND Internal Medicine Critical Care Medicine
DX: D69.6 Thrombocytopenia, unspecified (principal); I27.20 Pulmonary hypertension, unspecified; I10 Essential (primary) hypertension; R06.02 Shortness of breath
CPT/HCPCS: 71046; 78580; A9540

== ENCOUNTER 2021-09-27 09:10 | Outpatient (CLI) | payer OTHER ==
--- NOTE | 2021-09-28 13:30 | Mammography Report ---
DIGITAL SCREENING MAMMOGRAM WITH CAD, 09/27/2021 CLINICAL INFORMATION / INDICATION: Routine screening mammography. SCREENING MAMMOGRAM TECHNIQUE: Digital bilateral 2D mammography was obtained in the craniocaudal and mediolateral obliqu e projections. This examination was interpreted with the benefit of Computer-Aided Detection analysis . COMPARISON: 04/21/19, 10/05/14 FINDINGS: Breast Density: There are scattered areas of fibroglandular density. No dominant mass, suspicious calcifications, or architectural distortion in either breast. IMPRESSION: No mammographic evidence of malignancy. No significant change. Follow up recommendation: Routine yearly BI-RADS Category 1: NEGATIVE A "normal" or negative report should not discourage follow up or biopsy of a clinically significant f inding. A written summary of these findings will be mailed to the patient. The patient will be entered into a mammography reporting system which will generate a reminder letter for the patient's next appointmen t at the appropriate interval. The [employer] recommends yearly mammograms starting at age 40 and continuing as l salty as a woman is in good health. Breast MRI is recommended for women with an approximate 20-25% or greater lifetime risk of breast cancer, including women with a strong family history of breast or ova haris cancer or who have been treated for Hodgkin's disease. Signer Name: Saul Park MD Signed: 09/28/2021 1:26 PM Workstation Name: [email or web address]
== END 2021-09-27 09:11 | disposition home or self-care (01) ==
LOC: MAMMO 09:10
PROVIDERS: ATTEND Surgery Vascular Surgery
DX: Z12.31 Encounter for screening mammogram for malignant neoplasm of breast (principal)
CPT/HCPCS: 77067